=== PATIENT | female | born 1945 | race Caucasian/White ===

== ENCOUNTER 2017-05-02 10:53 | Inpatient (IN) | payer MEDICARE, BC ==
[~2017-05-02] VITALS: Ht 162.6 cm; Wt 93.2 kg
[~2017-05-02 10:53] MED LIST: ALBU18HF2 INH; ALLO100T PO; BUPR300T54 PO; CALC-793 PO; CLOP75TA15 PO; CYCL-1 PO; DIPH1TAB PO; FAMO20TA8 PO; GLIM4TAB79 PO; GUAI600T45 PO; HYDR-568 PO; IBAN150T PO; LACT1CAP65 PO; LOSA100T28 PO; LYR75C PO; OMEG-143 PO; PRAM0.5T3 PO; SUMA50TA PO; TOPI100T18 PO; ZOL50T PO
[2017-05-02 13:30] LABS: BASOPHILS % (AUTO) 0.7 % (0-1); EOSINOPHILS # (AUTO) 0.2 X10'3 (0-0.9); EOSINOPHILS % (AUTO) 3.7 % (0-6); HEMATOCRIT 34.9 % (35.0-45.0); HEMOGLOBIN 11.6 g/dl (12.0-16.0); LYMPHOCYTES # (AUTO) 1.4 X10'3 (1.1-4.8); MEAN CORPUSCULAR HEMOGLOBIN 30.2 PG (27.0-31.0); MEAN CORPUSCULAR HGB CONC 33.1 % (33.0-36.5); MEAN CORPUSCULAR VOLUME 91.3 FL (78-98); MEAN PLATELET VOLUME 6.9 FL (7.4-10.4); MONOCYTES # (AUTO) 0.6 X10'3 (0-0.9); MONOCYTES % (AUTO) 10.2 % (2-12); NEUTROPHILS # (AUTO) 3.6 X10'3 (1.8-7.7); NEUTROPHILS % (AUTO) 61.4 % (42-75); PLATELET COUNT 193 X10'3 (140-440); RED BLOOD COUNT 3.83 X10'6 (4.20-5.60); RED CELL DISTRIBUTION WIDTH 14.1 % (11.5-14.5); WHITE BLOOD COUNT 5.8 X10'3 (4.5-11.0)
[2017-05-02 13:36] LABS: INR 0.9 INR; PARTIAL THROMBOPLASTIN TIME 28 SECONDS (22-32); PROTHROMBIN TIME 9.8 SECONDS (9.0-12.0)
[2017-05-02 13:41] LABS: ALANINE AMINOTRANSFERASE 41 U/L (12-78); ALBUMIN 3.3 G/DL (3.4-5.0); ALBUMIN/GLOBULIN RATIO 0.8 (1.1-1.5); ALKALINE PHOSPHATASE 93 IU/L (46-116); ANION GAP 8 (8-16); ASPARTATE AMINO TRANSFERASE 25 U/L (10-37); BILIRUBIN,TOTAL 0.3 MG/DL (0.1-1.0); BLOOD UREA NITROGEN 30 MG/DL (7-18); BUN/CREATININE RATIO 21.4 (6.6-38.0); CALCIUM 9.2 MG/DL (8.5-10.1); CHLORIDE 110 MMOL/L (99-107); GLUCOSE 117 MG/DL (70-104); PHOSPHORUS 3.2 MG/DL (2.3-4.5); POTASSIUM 3.7 MMOL/L (3.5-5.1); SODIUM 141 MMOL/L (135-145); TOTAL CARBON DIOXIDE 22.6 MMOL/L (24-32); TOTAL PROTEIN 7.3 G/DL (6.4-8.2); eGFR 37 ML/MIN
[2017-05-02 14:11] LABS: CLARITY,URINE CLEAR (Clear); COLOR,URINE YELLOW (Yellow); GLUCOSE, URINE NEGATIVE (Neg); KETONES,URINE NEGATIVE (Neg); LEUKOCYTE ESTERASE ,URINE SMALL (Neg); NITRITES, URINE NEGATIVE (Neg); OCCULT BLOOD,URINE NEGATIVE (Neg); PH,URINE 5.5 (4.8-8.0); PROTEIN,URINE NEGATIVE (Neg); UROBILINOGEN,URINE 0.2 E.U/dL (0.2-1.0)
[2017-05-02 14:13] LABS: UA COLLECTION TYPE OTHER
[2017-05-02 14:18] LABS: BACTERIA,URINE FEW /HPF (Neg); RBC,URINE 0-2 /HPF (0-2); SQUAMOUS EPITHELIAL CELL,UR FEW /LPF (FEW)
[2017-05-02 14:24] LABS: TRANSITIONAL EPI CELLS,URINE FEW /HPF
[2017-05-02] MEDS ORDERED: glucagon, human recombinant 1mg kit SUBCUT PRN (15:25)
[2017-05-02] MEDS ORDERED: diphenoxylate/atropine tablet (Lomotil) PO PRN (15:25)
[2017-05-02] MEDS ORDERED: bisacodyl 10mg suppository rectal RC PRN (15:25)
[2017-05-02] MEDS ORDERED: dextrose 50%-water 50ml dispensing syringe IV PRN ×2 (15:25)
[2017-05-02] MEDS ORDERED: magnesium hydroxide 30ml (MOM) UD suspension PO PRN (15:25)
[2017-05-02] MEDS ORDERED: insulin Lispro (HumaLOG) vial - multi-dose SQ SCH (15:25)
[2017-05-02] MEDS ORDERED: MESSAGE TO PHARMACY PO ONE (15:25)
[2017-05-02] MEDS ORDERED: diphenhydrAMINE 50 mg/ml inj IV PRN (15:25)
[2017-05-02] MEDS ORDERED: diphenhydrAMINE 25mg capsule PO PRN (15:25)
[2017-05-02] MEDS ORDERED: ondansetron/PF 4mg/2ml inj IV PRN (15:25)
[2017-05-02] MEDS ORDERED: metoclopramide 5 mg/ml inj IV PRN (15:25)
[2017-05-02] MEDS ORDERED: famotidine 20mg tablet PO PRN (15:25)
[2017-05-02] MEDS ORDERED: dextrose ORAL solution 15 GM/59 ML bottle PO PRN ×2 (15:25)
[2017-05-02] MEDS ORDERED: acetaminophen 325mg tablet PO PRN (15:25)
[2017-05-02] MEDS ORDERED: mag hydrox/Alum hydrox/simeth 30ml oral suspension PO PRN (15:25)
[2017-05-02] MEDS ORDERED: albuterol 2.5 MG/3 ML nebule NEB PRN (15:45)
[2017-05-02] MEDS ORDERED: SUMAtriptan 25 MG tablet PO PRN (15:50)
[2017-05-02 15:53] LABS: HEMOGLOBIN A1C 6.5 % (4.5-6.2)
[2017-05-02 18:00] VITALS: BP 163/91
[2017-05-02] MEDS: normal saline 1000ml 1,000 ML IV SCH (19:15)
[2017-05-02] MEDS: buPROPion SR 150mg tablet PO SCH (20:00)
[2017-05-02] MEDS ORDERED: Insulin Detemir pen SQ SCH (21:00)
[2017-05-02] MEDS ORDERED: pramipexole 0.25mg tablet PO SCH (21:00)
[2017-05-02] MEDS ORDERED: temazepam 15mg capsule PO PRN (21:00)
[2017-05-02] MEDS ORDERED: topiramate 100mg tablet PO SCH (21:00)
[2017-05-02] MEDS: docusate sod 100mg capsule PO SCH (21:09)
[2017-05-02 22:00] VITALS: BP 123/65
[2017-05-03 02:00] VITALS: BP 140/64
[2017-05-03] MEDS: normal saline 1000ml 1,000 ML IV SCH ×3 (04:20→15:19)
[2017-05-03 06:00] VITALS: BP 127/69
[2017-05-03 06:44] LABS: BASOPHILS % (AUTO) 0.8 % (0-1); EOSINOPHILS # (AUTO) 0.3 X10'3 (0-0.9); EOSINOPHILS % (AUTO) 4.7 % (0-6); HEMOGLOBIN 11.4 g/dl (12.0-16.0); LYMPHOCYTES # (AUTO) 1.8 X10'3 (1.1-4.8); LYMPHOCYTES % (AUTO) 33.7 % (21-51); MEAN CORPUSCULAR HGB CONC 32.6 % (33.0-36.5); MEAN CORPUSCULAR VOLUME 92.1 FL (78-98); MEAN PLATELET VOLUME 7.4 FL (7.4-10.4); MONOCYTES # (AUTO) 0.8 X10'3 (0-0.9); MONOCYTES % (AUTO) 14.9 % (2-12); NEUTROPHILS # (AUTO) 2.5 X10'3 (1.8-7.7); NEUTROPHILS % (AUTO) 45.9 % (42-75); PLATELET COUNT 167 X10'3 (140-440); RED CELL DISTRIBUTION WIDTH 13.7 % (11.5-14.5); WHITE BLOOD COUNT 5.4 X10'3 (4.5-11.0)
[2017-05-03 07:06] LABS: ALANINE AMINOTRANSFERASE 43 U/L (12-78); ALBUMIN 3.1 G/DL (3.4-5.0); ALBUMIN/GLOBULIN RATIO 0.8 (1.1-1.5); ALKALINE PHOSPHATASE 91 IU/L (46-116); ANION GAP 9 (8-16); ASPARTATE AMINO TRANSFERASE 24 U/L (10-37); BILIRUBIN,TOTAL 0.3 MG/DL (0.1-1.0); BLOOD UREA NITROGEN 28 MG/DL (7-18); CALCIUM 8.7 MG/DL (8.5-10.1); CHLORIDE 112 MMOL/L (99-107); CHOL/HDL RATIO 4.2 (0.00-4.99); CHOLESTEROL 195 MG/DL (0-200); GLUCOSE 132 MG/DL (70-104); HDL CHOLESTEROL 46 MG/DL (35-60); LDL CHOLESTEROL 117 MG/DL (50-100); POTASSIUM 3.7 MMOL/L (3.5-5.1); SODIUM 142 MMOL/L (135-145); TOTAL CARBON DIOXIDE 20.9 MMOL/L (24-32); TOTAL PROTEIN 6.9 G/DL (6.4-8.2); TRIGLYCERIDES 184 MG/DL (20-135); eGFR 37 ML/MIN
[2017-05-03] MEDS ORDERED: pregabalin 75mg capsule PO SCH (08:00)
[2017-05-03] MEDS: docusate sod 100mg capsule PO SCH (08:00)
[2017-05-03] MEDS: buPROPion SR 150mg tablet PO SCH (08:00)
[2017-05-03] MEDS ORDERED: allopurinol 100mg tablet PO SCH (08:00)
[2017-05-03] MEDS ORDERED: sertraline 50mg tablet PO SCH (08:00)
[2017-05-03] MEDS ORDERED: clopidogrel 75mg tablet PO SCH (08:00)
[2017-05-03 10:00] VITALS: BP 155/83
[2017-05-03] MEDS ORDERED: LORazepam 2 mg/ml vial IV ONE (10:00)
[2017-05-03] MEDS ORDERED: GLIM1TAB46 PO (12:56)
[2017-05-03] MEDS ORDERED: THIO300C PO (13:22)
[2017-05-03 14:00] VITALS: BP 151/79
[2017-05-03] MEDS ORDERED: ASPI1CPM9 PO (16:27)
[2017-05-03] MEDS ORDERED: ATOR40TA PO (16:33)
== END 2017-05-03 17:15 | disposition home or self-care (01) | DRG 65 ==
LOC: ER 10:53 → ED HOLD 15:25 → ORTHO 4S 17:35
PROVIDERS: ADMIT Family Medicine; ATTEND Family Medicine
DX: I63.9 Cerebral infarction, unspecified (principal); N17.9 Acute kidney failure, unspecified; E11.22 Type 2 diabetes mellitus with diabetic chronic kidney disease; E11.65 Type 2 diabetes mellitus with hyperglycemia; G45.9 Transient cerebral ischemic attack, unspecified; R20.2 Paresthesia of skin; E66.01 Morbid (severe) obesity due to excess calories; E78.5 Hyperlipidemia, unspecified; F41.1 Generalized anxiety disorder; G47.30 Sleep apnea, unspecified; G89.29 Other chronic pain; I12.9 Hypertensive chronic kidney disease with stage 1 through stage 4 chronic kidney disease, or unspecified chronic kidney disease; N18.9 Chronic kidney disease, unspecified; I48.0 Paroxysmal atrial fibrillation; Z68.35 Body mass index [BMI] 35.0-35.9, adult; Z79.02 Long term (current) use of antithrombotics/antiplatelets; Z88.0 Allergy status to penicillin; Z88.1 Allergy status to other antibiotic agents; Z88.5 Allergy status to narcotic agent; Z88.8 Allergy status to other drugs, medicaments and biological substances; Z79.899 Other long term (current) drug therapy; Z90.49 Acquired absence of other specified parts of digestive tract; Z86.73 Personal history of transient ischemic attack (TIA), and cerebral infarction without residual deficits
CPT/HCPCS: 36415; 70450; 70544; 70547; 70551; 71045; 71250; 80053; 80061; 81001; 82948; 83036; 83735; 83880; 84100; 84443; 84484; 85025; 85610; 85730; 87070; 87088; 92616; 93005; 93306; 93880; 97110; 97116; 97161; 99285; J2060; J7030